=== PATIENT | female | born 1970 | race Caucasian/White ===

== ENCOUNTER 2022-11-15 20:19 | Emergency (ER) | payer SELFPAY ==
[~2022-11-15] VITALS: Ht 162.6 cm; Wt 70.0 kg
[2022-11-15 22:05] VITALS: BP 147/84
[2022-11-15 22:15] VITALS: BP 136/83
[2022-11-15 22:30] VITALS: BP 145/77
[2022-11-15 22:45] VITALS: BP 137/76
[2022-11-15 23:16] VITALS: BP 119/60
[2022-11-16] MEDS ORDERED: VOLTAREN75 MG PO (00:30)
[2022-11-16 00:41] VITALS: BP 133/69
== END 2022-11-16 00:30 | disposition home or self-care (01) | DRG 552 ==
LOC: ED 20:19
DX: M54.30 Sciatica, unspecified side (principal); K21.9 Gastro-esophageal reflux disease without esophagitis